=== PATIENT | female | born 1950 | race Caucasian/White ===

== ENCOUNTER → 2023-06-20 12:25 | Outpatient (REF) | payer OTHER, SELFPAY | LOC: HWRAD 12:25 | PROVIDERS: ATTENDING PHYSICIAN Nurse Practitioner Adult Health | DX: Z78.0 Asymptomatic menopausal state (principal) | CPT/HCPCS: 77080 ==

== ENCOUNTER → 2023-11-30 06:26 | Day surgery (SDC) | payer OTHER, SELFPAY | LOC: GI 06:26 | PROVIDERS: ATTENDING PHYSICIAN Internal Medicine | DX: Z12.11 Encounter for screening for malignant neoplasm of colon (principal); K64.9 Unspecified hemorrhoids; K52.3 Indeterminate colitis; K83.01 Primary sclerosing cholangitis; K51.40 Inflammatory polyps of colon without complications; K51.90 Ulcerative colitis, unspecified, without complications | CPT/HCPCS: 45385; 45380; 88305 ==

== ENCOUNTER → 2023-12-01 13:49 | Outpatient (REF) | payer OTHER, SELFPAY | LOC: HWRAD 13:49 | PROVIDERS: ATTENDING PHYSICIAN Internal Medicine; FAMILY PHYSICIAN Nurse Practitioner Adult Health | DX: K83.01 Primary sclerosing cholangitis (principal) | CPT/HCPCS: 76700 ==

== ENCOUNTER → 2025-01-06 14:04 | Outpatient (REF) | payer OTHER, SELFPAY | LOC: HWRCS 14:04 | PROVIDERS: ATTENDING PHYSICIAN Nurse Practitioner; FAMILY PHYSICIAN Nurse Practitioner Adult Health | DX: I42.9 Cardiomyopathy, unspecified (principal) | CPT/HCPCS: 93306 ==

== ENCOUNTER 2025-01-07 06:41 | Day surgery (SDC) | payer OTHER, SELFPAY | END 2025-01-07 14:14 | disposition home or self-care (01) | LOC: GI 06:41 | PROVIDERS: ATTENDING PHYSICIAN Internal Medicine; FAMILY PHYSICIAN Nurse Practitioner Adult Health | DX: Z12.11 Encounter for screening for malignant neoplasm of colon (principal); K83.01 Primary sclerosing cholangitis; K64.9 Unspecified hemorrhoids; K52.3 Indeterminate colitis; K51.90 Ulcerative colitis, unspecified, without complications; K51.40 Inflammatory polyps of colon without complications; K63.5 Polyp of colon; K62.1 Rectal polyp | CPT/HCPCS: 45380; 88305 ==